=== PATIENT | female | born 1965 | race Two or more races ===

== ENCOUNTER 2025-05-01 20:16 | Emergency (ER) | payer OTHER ==
[~2025-05-01] VITALS: Ht 160 cm; Wt 63.6 kg
[2025-05-01 20:24] VITALS: TEMP 97.9
[2025-05-01 20:45] LABS: PLATELET COUNT (AUTO) 563 K/uL (150-450); RED BLOOD CELL COUNT(AUTO) 4.65 MIL/uL (4.00-5.20); RED CELL DISTRIBUTION WIDTH 14.4 % (11.5-14.5); WHITE BLOOD COUNT (AUTO) 14.0 K/uL (4.5-11.0)
[2025-05-01 20:52] LABS: APPEARANCE,URINE CLEAR (CLEAR); GLUCOSE, URINE (UA) NEGATIVE (NEGATIVE); LEUKOCYTE ESTERASE ,URINE NEGATIVE (NEGATIVE); NITRATE,URINE NEGATIVE (NEGATIVE); OCCULT BLOOD,URINE NEGATIVE (NEGATIVE); SPECIFIC GRAVITIY, URINE 1.009 (1.003-1.030)
[2025-05-01 20:59] LABS: ASPARTATE AMINOTRANSFERASE 18 U/L (15-37); TOTAL PROTEIN, SERUM 8.4 g/dL (6.4-8.2)
[2025-05-01 21:05] LABS: CALCIUM, TOTAL 8.2 mg/dL (8.8-10.5); CREATININE 1.04 mg/dL (0.60-1.30); GLOMERULAR FILTR. RATE CALC 54.0 mL/min (>60); GLUCOSE,RANDOM 224.0 mg/dL (70-110); SODIUM SERUM 137.0 mmol/L (136-145); UREA NITROGEN, BLOOD 16.0 mg/dL (7-18)
[2025-05-01 21:12] LABS: ACETONE,BLOOD NEGATIVE (NEGATIVE)
[2025-05-01 22:00] VITALS: BP 122/83; PULSE 77; RESP 16; O2SAT 99
== END 2025-05-01 23:18 | disposition home or self-care (01) ==
LOC: EMS 20:34
DX: E11.65 Type 2 diabetes mellitus with hyperglycemia (principal); I10 Essential (primary) hypertension
CPT/HCPCS: 80048; 80076; 81003; 82009; 82962; 85025; 93005; 99284